=== PATIENT | male | born 1980 | race Two or more races ===

== ENCOUNTER → 2023-07-23 | Outpatient (REF) | payer BC | LOC: M LAB REF 12:33 | PROVIDERS: ATTEND Physician Assistant Medical | DX: M10.9 Gout, unspecified (principal) ==

== ENCOUNTER → 2023-08-20 | Outpatient (CLI) | payer BC | LOC: M PLAIMG 07:47 | PROVIDERS: ATTEND Physician Assistant Medical | DX: R01.1 Cardiac murmur, unspecified (principal) ==

== ENCOUNTER → 2024-03-27 | Outpatient (REF) | payer BC, OTHER | LOC: M LAB REF 16:15 | PROVIDERS: ATTEND Physician Assistant Medical | DX: M10.9 Gout, unspecified (principal) ==

== ENCOUNTER → 2024-10-12 | Outpatient (REF) | payer BC, OTHER ==
[2024-10-14 09:33] LABS: LDL DIRECT 129 mg/dL (<100)
== END ==
LOC: M LAB REF 16:47
PROVIDERS: ATTEND Physician Assistant Medical
DX: E78.5 Hyperlipidemia, unspecified (principal)